=== PATIENT | male | born 2000 | race Caucasian/White ===

== ENCOUNTER 2024-05-16 00:33 | Emergency (ER) | payer BC, OTHER ==
[2024-05-16] MEDS ORDERED: diphenhydrAMINE 25 MG CAP ONE (01:15)
== END 2024-05-16 02:27 | disposition home or self-care (01) ==
LOC: ERS 00:33
DX: T63.311A Toxic effect of venom of black widow spider, accidental (unintentional), initial encounter (principal); Z55.0 Illiteracy and low-level literacy
CPT/HCPCS: 99282